=== PATIENT | female | born 1940 | race Caucasian/White ===

== ENCOUNTER 2019-04-12 10:51 | Emergency (ER) | payer OTHER ==
[~2019-04-12] VITALS: Ht 167.6 cm; Wt 99.3 kg
[2019-04-12 10:55] VITALS: BP 198/76; Ht 167.6 cm; Wt 99.3 kg
== END 2019-04-12 12:26 | disposition home or self-care (01) ==
LOC: ED 10:51
DX: M62.830 Muscle spasm of back (principal); Z76.0 Encounter for issue of repeat prescription